=== PATIENT | male | born 1985 | race Caucasian/White ===

== ENCOUNTER 2017-03-19 19:01 | Emergency (ER) | payer OTHER ==
[~2017-03-19] VITALS: Ht 172.7 cm; Wt 100.0 kg
[2017-03-19] MEDS ORDERED: IBUPROFEN 600 MG TAB PO ONE (20:45)
[2017-03-19] MEDS ORDERED: IBUP-1022 PO (20:50)
[2017-03-19 21:22] VITALS: BP 140/95
--- NOTE | 2017-03-20 01:31 | REP ---
Clinical: Pain and swelling. Technique: AP, lateral, bilateral oblique and sunrise views of the left knee. Findings: Early advanced tricompartmental osteoarthritic degenerative changes include subchondral sclerosis, lateral osteophytes, and trace chondrocalcinosis. No obvious acute fracture dislocation. No obvious effusion. Impression: Early advanced tricompartmental osteoarthritic degenerative changes. Findings may be related to old injury. No acute fracture dislocation appreciated. Signed by Eddie Weaver MD 03/20/2017 01:22 A
== END 2017-03-19 21:46 | disposition home or self-care (01) ==
LOC: M ED 19:01
DX: S83.412A Sprain of medial collateral ligament of left knee, initial encounter (principal); X50.1XXA Overexertion from prolonged static or awkward postures, initial encounter; Y92.410 Unspecified street and highway as the place of occurrence of the external cause; Y93.9 Activity, unspecified; Y99.9 Unspecified external cause status

== ENCOUNTER 2017-05-14 11:25 | Emergency (ER) | payer OTHER ==
[~2017-05-14] VITALS: Ht 172.7 cm; Wt 100.0 kg
[~2017-05-14 11:25] MED LIST: IBUP-1022 PO
[2017-05-14] MEDS ORDERED: LIDOCAINE 1% MDV 20ML VIAL IM ONE (13:30)
[2017-05-14] MEDS ORDERED: CEPHALEXIN 500 MG CAP PO ONE (13:45)
[2017-05-14] MEDS ORDERED: KEFL500C17 PO (13:48)
[2017-05-14 13:53] VITALS: BP 138/86
== END 2017-05-14 13:54 | disposition home or self-care (01) ==
LOC: M ED 11:25
DX: S51.811A Laceration without foreign body of right forearm, initial encounter (principal); S61.210A Laceration without foreign body of right index finger without damage to nail, initial encounter; W25.XXXA Contact with sharp glass, initial encounter; Y92.9 Unspecified place or not applicable; Y93.89 Activity, other specified; Y99.9 Unspecified external cause status

== ENCOUNTER 2018-01-29 11:59 | Emergency (ER) | payer OTHER | END 2018-01-29 13:38 | disposition left against medical advice (07) | LOC: M ED 11:59 | DX: Z53.29 Procedure and treatment not carried out because of patient's decision for other reasons (principal) ==

== ENCOUNTER 2022-01-01 20:11 | Emergency (ER) | payer OTHER ==
[~2022-01-01] VITALS: Ht 172.7 cm; Wt 91.0 kg
[~2022-01-01 20:11] MED LIST changes: +KEFL500C17 PO
[2022-01-01 20:14] VITALS: BP 136/68
== END 2022-01-01 21:46 | disposition left against medical advice (07) ==
LOC: M ED 20:11
DX: Z53.21 Procedure and treatment not carried out due to patient leaving prior to being seen by health care provider (principal)

== ENCOUNTER 2022-01-02 01:40 | Emergency (ER) | payer OTHER ==
[~2022-01-02] VITALS: Ht 172.7 cm; Wt 91.9 kg
[2022-01-02 01:41] VITALS: BP 132/80
== END 2022-01-02 05:42 | disposition left against medical advice (07) ==
LOC: M ED 01:40
DX: Z53.21 Procedure and treatment not carried out due to patient leaving prior to being seen by health care provider (principal)

== ENCOUNTER 2023-02-16 12:11 | Emergency (ER) | payer OTHER ==
[~2023-02-16] VITALS: Ht 172.7 cm; Wt 91.5 kg
[2023-02-16] MEDS ORDERED: MORPHINE 4 MG/ML 1ML VIAL IV ONE (13:05)
[2023-02-16 13:14] LABS: BASO % 0.2 % (0.0-1.0); EOS % 0.3 % (0.0-3.0); HEMATOCRIT 47.3 % (42.0-52.0); LYMPH # 2.2 10^3/uL (1.5-5.0); LYMPH % 21.4 % (24.0-44.0); MEAN CORPUSCULAR HEMOGLOBIN 32.6 pg (27.0-33.0); MEAN CORPUSCULAR HGB CONC 33.8 g/dl (32.0-36.5); MEAN CORPUSCULAR VOLUME 96.3 fl (80.0-96.0); MONO # 1.1 10^3/uL (0.0-0.8); MONO % 10.2 % (2.0-8.0); NEUTROPHILS % 67.5 % (36.0-66.0); PLATELET COUNT, AUTOMATED 375 10^3/uL (150-450); RED BLOOD COUNT 4.91 10^6/uL (4.30-6.10); WHITE BLOOD COUNT 10.3 10^3/uL (4.0-10.0)
[2023-02-16] MEDS ORDERED: NS 1,000 ML IV ONE (13:15)
[2023-02-16 13:20] LABS: ERYTHROCYTE SEDIMENTATION RATE 54 mm/hr (0-15)
[2023-02-16 13:31] LABS: C REACTIVE PROTEIN QUANTITATIV 4.2 MG/DL (<1.0)
[2023-02-16 13:32] LABS: URIC ACID 7.9 MG/DL (3.7-9.2)
[2023-02-16] MEDS ORDERED: methylPREDNISolone 125MG 2ML VIAL IV ONE (14:50)
[2023-02-16] MEDS ORDERED: ceFAZolin SOD 1 GM in D5W MINI-BAG PLUS 50 ML IV ONE (14:50)
[2023-02-16] MEDS ORDERED: CEPH500C PO (15:53)
[2023-02-16] MEDS ORDERED: PRED20TA PO (15:53)
[2023-02-16 16:31] VITALS: BP 154/78; TEMP 98.7; O2SAT 97
== END 2023-02-16 16:37 | disposition home or self-care (01) ==
LOC: M ED 12:11
DX: L03.116 Cellulitis of left lower limb (principal); M10.00 Idiopathic gout, unspecified site; K21.9 Gastro-esophageal reflux disease without esophagitis; F12.10 Cannabis abuse, uncomplicated; F17.200 Nicotine dependence, unspecified, uncomplicated; Z79.52 Long term (current) use of systemic steroids; Z79.899 Other long term (current) drug therapy
CPT/HCPCS: 73630; 80047; 83605; 84550; 85025; 85652; 86140; 87040; 93971; 96365; 96375; 99284; J0690; J2930

== ENCOUNTER → 2023-04-02 | Outpatient (REF) | payer OTHER ==
[~2023-04-02] MED LIST changes: +CEPH500C PO; +PRED20TA PO
[2023-04-02 17:33] LABS: ALBUMIN 3.6 G/DL (3.2-5.2); ALKALINE PHOSPHATASE 72 U/L (46-116); ALT/SGPT 16 U/L (7.0-40); AST/SGOT 16 U/L (<34); BILIRUBIN,TOTAL 0.4 MG/DL (0.3-1.2); BLOOD UREA NITROGEN < 5 MG/DL (9-23); CALCIUM LEVEL 8.7 MG/DL (8.5-10.1); CARBON DIOXIDE LEVEL 28 MMOL/L (20-31); CHLORIDE LEVEL 108 MMOL/L (98-107); CHOLESTEROL LEVEL 181 MG/DL (<200); CHOLESTEROL RISK RATIO 4.65 (<5); CREATININE FOR GFR 0.77 MG/DL (0.70-1.30); GLOMERULAR FILTRATION RATE > 60.0 (>60); GLUCOSE, FASTING 89 MG/DL (60-100); HDL CHOLESTEROL 38.9 MG/DL (>40); LDL CHOLESTEROL 109.1 MG/DL (<100); NON-HDL-C 142.1 MG/DL; POTASSIUM SERUM 4.5 MMOL/L (3.5-5.1); SODIUM LEVEL 143 MMOL/L (136-145); TRIGLYCERIDES LEVEL 165 MG/DL (<150); URIC ACID 9.2 MG/DL (3.7-9.2)
== END ==
LOC: M LAB REF 16:38
PROVIDERS: ATTEND Pediatrics
DX: M1A.0790 Idiopathic chronic gout, unspecified ankle and foot, without tophus (tophi) (principal); E78.2 Mixed hyperlipidemia

== ENCOUNTER 2023-06-18 21:30 | Emergency (ER) | payer OTHER ==
[~2023-06-18] VITALS: Ht 177.8 cm; Wt 65.0 kg
[~2023-06-18 21:30] MED LIST changes: +ALLO100T; +INDO75CA10; +ONDA4TAB6 PO; +PROT1TAB2 PO
[2023-06-18 23:15] LABS: ETHYL ALCOHOL (ETHANOL) 0.005 % (0.000-0.010)
[2023-06-18 23:16] LABS: SALICYLATE LEVEL < 3.0 MG/DL (<30)
[2023-06-18 23:18] LABS: THYROID STIMULATING HORMONE 2.812 uIU/ML (0.55-4.78)
[2023-06-18 23:20] LABS: ALBUMIN 4.4 G/DL (3.2-5.2); ALKALINE PHOSPHATASE 81 U/L (46-116); ALT/SGPT 26 U/L (7.0-40); AST/SGOT 45 U/L (<34); BILIRUBIN,DIRECT 0.1 MG/DL (<0.4); BILIRUBIN,TOTAL 0.5 MG/DL (0.3-1.2); BLOOD UREA NITROGEN 8 MG/DL (9-23); CALCIUM LEVEL 9.5 MG/DL (8.5-10.1); CARBON DIOXIDE LEVEL 19 MMOL/L (20-31); CHLORIDE LEVEL 105 MMOL/L (98-107); CREATININE FOR GFR 0.74 MG/DL (0.70-1.30); GLOMERULAR FILTRATION RATE > 60.0 (>60); GLUCOSE, FASTING 76 MG/DL (60-100); POTASSIUM SERUM 4.8 MMOL/L (3.5-5.1); SODIUM LEVEL 139 MMOL/L (136-145); TOTAL PROTEIN 7.6 G/DL (5.7-8.2)
[2023-06-18 23:24] LABS: AMPHETAMINES LEVEL URINE NEGATIVE (NEGATIVE); BARBITURATES URINE NEGATIVE (NEGATIVE); BENZODIAZEPINES URINE NEGATIVE (NEGATIVE); COCAINE METABOLITE URINE NEGATIVE (NEGATIVE); METHADONE URINE NEGATIVE (NEGATIVE); OPIATES URINE NEGATIVE (NEGATIVE); PHENCYCLIDINE URINE NEGATIVE (NEGATIVE)
[2023-06-18 23:34] LABS: CANNABINOIDS URINE POSITIVE (NEGATIVE)
[2023-06-18 23:39] VITALS: BP 137/99; TEMP 98.1; O2SAT 99
[2023-06-19] MEDS ORDERED: HOME MED LIST COMPLETE! XX SCH (08:10)
== END 2023-06-19 11:53 | disposition home or self-care (01) ==
LOC: M ED 21:30
DX: F43.0 Acute stress reaction (principal); R45.850 Homicidal ideations; K21.9 Gastro-esophageal reflux disease without esophagitis

== ENCOUNTER 2023-06-24 13:03 | Inpatient (IN) | payer MEDICAID, OTHER ==
[~2023-06-24] VITALS: Ht 172.7 cm; Wt 90.9 kg
[2023-06-24 14:37] LABS: HEMATOCRIT 51.1 % (42.0-52.0); HEMOGLOBIN 17.7 g/dl (13.5-17.5); MEAN CORPUSCULAR HEMOGLOBIN 33.3 pg (27.0-33.0); MEAN CORPUSCULAR HGB CONC 34.6 g/dl (32.0-36.5); MEAN CORPUSCULAR VOLUME 96.1 fl (80.0-96.0); PLATELET COUNT, AUTOMATED 261 10^3/uL (150-450); RED BLOOD COUNT 5.32 10^6/uL (4.30-6.10); WHITE BLOOD COUNT 8.1 10^3/uL (4.0-10.0)
[2023-06-24 15:00] LABS: ETHYL ALCOHOL (ETHANOL) < 0.003 % (0.000-0.010)
[2023-06-24 15:02] LABS: ALBUMIN 4.2 G/DL (3.2-5.2); ALKALINE PHOSPHATASE 79 U/L (46-116); ALT/SGPT 18 U/L (7.0-40); AST/SGOT 23 U/L (<34); BILIRUBIN,DIRECT 0.1 MG/DL (<0.4); BILIRUBIN,TOTAL 0.4 MG/DL (0.3-1.2); BLOOD UREA NITROGEN 8 MG/DL (9-23); CALCIUM LEVEL 9.1 MG/DL (8.5-10.1); CARBON DIOXIDE LEVEL 26 MMOL/L (20-31); CHLORIDE LEVEL 104 MMOL/L (98-107); CREATININE FOR GFR 0.73 MG/DL (0.70-1.30); GLOMERULAR FILTRATION RATE > 60.0 (>60); GLUCOSE, FASTING 88 MG/DL (60-100); POTASSIUM SERUM 3.9 MMOL/L (3.5-5.1); SALICYLATE LEVEL < 3.0 MG/DL (<30); SODIUM LEVEL 140 MMOL/L (136-145)
[2023-06-24 15:24] LABS: BARBITURATES URINE NEGATIVE (NEGATIVE); COCAINE METABOLITE URINE NEGATIVE (NEGATIVE); METHADONE URINE NEGATIVE (NEGATIVE); OPIATES URINE NEGATIVE (NEGATIVE); PHENCYCLIDINE URINE NEGATIVE (NEGATIVE)
[2023-06-24 15:25] LABS: AMPHETAMINES LEVEL URINE NEGATIVE (NEGATIVE); BENZODIAZEPINES URINE NEGATIVE (NEGATIVE)
[2023-06-24 15:26] LABS: CANNABINOIDS URINE POSITIVE (NEGATIVE)
[2023-06-24] MEDS ORDERED: OLANZapine 5 MG TAB PO PRN (16:55)
[2023-06-24] MEDS ORDERED: MOM 30ML SUSPENSION UDC PO PRN (16:55)
[2023-06-24] MEDS ORDERED: MAALOX 30 ML SUSP *UDC PO PRN (16:55)
[2023-06-24] MEDS ORDERED: traZODone 50 MG TAB PO PRN (16:55)
[2023-06-24] MEDS ORDERED: diphenhydrAMINE 25MG CAP PO PRN (16:55)
[2023-06-24] MEDS ORDERED: IBUPROFEN 400MG TAB PO PRN (16:55)
[2023-06-24] MEDS ORDERED: ACETAMINOPHEN TAB 650MG DOSE (2X325MG) PO PRN (16:55)
[2023-06-24 20:35] VITALS: BP 119/78; TEMP 97.7; O2SAT 97
[2023-06-24] MEDS ORDERED: ALLO100T PO (21:34)
[2023-06-24] MEDS ORDERED: COLC0.6T47 PO (21:34)
[2023-06-24] MEDS ORDERED: HOME MED LIST COMPLETE! XX SCH (21:35)
[2023-06-25 06:30] VITALS: BP 154/92; TEMP 97.5; O2SAT 97
[2023-06-25 08:04] VITALS: BP 138/80
[2023-06-25] MEDS: OLANZapine 5 MG TAB PO SCH ×2 (10:31→21:00)
[2023-06-25 16:05] VITALS: BP 123/85; TEMP 98.2; O2SAT 96
[2023-06-25 16:14] VITALS: BP 133/84; TEMP 98.4; O2SAT 100
[2023-06-26 06:30] VITALS: BP 139/73; TEMP 97.6; O2SAT 96
[2023-06-26] MEDS: OLANZapine 5 MG TAB PO SCH ×2 (09:00→21:00)
[2023-06-26] MEDS ORDERED: OLAN1TAB20 PO (11:34)
[2023-06-26 17:38] VITALS: BP 136/77; TEMP 97.9; O2SAT 98
[2023-06-27 06:34] VITALS: BP 116/74; TEMP 97.9; O2SAT 98
[2023-06-27] MEDS: OLANZapine 5 MG TAB PO SCH (09:00)
== END 2023-06-27 11:57 | disposition home or self-care (01) | DRG 751 ==
LOC: M ED 13:03 → M ED INP 16:54 → M PSY 19:51
PROVIDERS: ADMIT Student in an Organized Health Care Education/Training Program; ATTEND Student in an Organized Health Care Education/Training Program
DX: F29 Unspecified psychosis not due to a substance or known physiological condition (principal); F12.90 Cannabis use, unspecified, uncomplicated; F10.10 Alcohol abuse, uncomplicated; F17.200 Nicotine dependence, unspecified, uncomplicated; F15.90 Other stimulant use, unspecified, uncomplicated; F60.0 Paranoid personality disorder; R45.850 Homicidal ideations; Z79.899 Other long term (current) drug therapy

== ENCOUNTER → 2023-09-05 | Outpatient (CLI) | payer OTHER, SELFPAY ==
[~2023-09-05] MED LIST changes: +ALLO100T PO; +COLC0.6T47 PO; +OLAN1TAB20 PO
== END ==
LOC: M RAD 12:18
PROVIDERS: ATTEND Nurse Practitioner Family
DX: M47.816 Spondylosis without myelopathy or radiculopathy, lumbar region (principal); M46.96 Unspecified inflammatory spondylopathy, lumbar region; M41.86 Other forms of scoliosis, lumbar region

== ENCOUNTER → 2023-10-18 | Outpatient (REF) | payer MEDICAID ==
[2023-10-18 17:50] LABS: BASO % 0.2 % (0.0-1.0); EOS % 0.2 % (0.0-3.0); HEMATOCRIT 43.9 % (42.0-52.0); LYMPH # 2.1 10^3/uL (1.5-5.0); LYMPH % 25.4 % (24.0-44.0); MEAN CORPUSCULAR HEMOGLOBIN 33.3 pg (27.0-33.0); MEAN CORPUSCULAR HGB CONC 34.2 g/dl (32.0-36.5); MEAN CORPUSCULAR VOLUME 97.3 fl (80.0-96.0); MONO # 0.6 10^3/uL (0.0-0.8); MONO % 6.9 % (2.0-8.0); NEUTROPHILS # 5.5 10^3/uL (1.5-8.5); NEUTROPHILS % 67.2 % (36.0-66.0); PLATELET COUNT, AUTOMATED 273 10^3/uL (150-450); RED BLOOD COUNT 4.51 10^6/uL (4.30-6.10); WHITE BLOOD COUNT 8.1 10^3/uL (4.0-10.0)
[2023-10-18 18:05] LABS: HEMOGLOBIN A1c 5.1 % (4.0-6.0)
[2023-10-18 18:08] LABS: ALBUMIN 3.7 G/DL (3.2-5.2); ALKALINE PHOSPHATASE 80 U/L (46-116); ALT/SGPT 33 U/L (7.0-40); AST/SGOT 22 U/L (<34); BILIRUBIN,TOTAL 0.4 MG/DL (0.3-1.2); BLOOD UREA NITROGEN 12 MG/DL (9-23); CALCIUM LEVEL 8.5 MG/DL (8.5-10.1); CARBON DIOXIDE LEVEL 27 MMOL/L (20-31); CHLORIDE LEVEL 105 MMOL/L (98-107); CHOLESTEROL LEVEL 244 MG/DL (<200); CHOLESTEROL RISK RATIO 4.86 (<5); CREATININE FOR GFR 0.87 MG/DL (0.70-1.30); GLOMERULAR FILTRATION RATE > 60.0 (>60); GLUCOSE, FASTING 81 MG/DL (60-100); HDL CHOLESTEROL 50.2 MG/DL (>40); LDL CHOLESTEROL 141.6 MG/DL (<100); MAGNESIUM LEVEL 1.7 MG/DL (1.8-2.4); NON-HDL-C 193.8 MG/DL; POTASSIUM SERUM 4.2 MMOL/L (3.5-5.1); SODIUM LEVEL 138 MMOL/L (136-145); THYROID STIMULATING HORMONE 1.165 uIU/ML (0.55-4.78); TOTAL 25(OH) VITAMIN D 16.2 NG/ML (20.0-100.0); TOTAL PROTEIN 6.4 G/DL (5.7-8.2); TRIGLYCERIDES LEVEL 261 MG/DL (<150)
== END ==
LOC: M LAB REF 16:37
PROVIDERS: ATTEND Nurse Practitioner Family
DX: E55.9 Vitamin D deficiency, unspecified (principal); E66.3 Overweight

== ENCOUNTER → 2023-10-28 | Outpatient (CLI) | payer OTHER | LOC: M RAD 10:57 | PROVIDERS: ATTEND Nurse Practitioner Family | DX: M25.551 Pain in right hip (principal) ==

== ENCOUNTER → 2023-10-29 | Outpatient (REF) | payer OTHER ==
[2023-10-29 17:18] LABS: URIC ACID 7.5 MG/DL (3.7-9.2)
[2023-10-29 17:21] LABS: CHOLESTEROL RISK RATIO 3.76 (<5); HDL CHOLESTEROL 49.1 MG/DL (>40); LDL CHOLESTEROL 88.1 MG/DL (<100); NON-HDL-C 135.9 MG/DL
== END ==
LOC: M LAB REF 15:18
PROVIDERS: ATTEND Nurse Practitioner Family
DX: M1A.0790 Idiopathic chronic gout, unspecified ankle and foot, without tophus (tophi) (principal); R79.89 Other specified abnormal findings of blood chemistry

== ENCOUNTER → 2024-03-09 | Outpatient (REF) | payer OTHER ==
[~2024-03-09] MED LIST changes: +ONDA-282 PO; -ONDA4TAB6 PO
[2024-03-09 16:36] LABS: URIC ACID 6.4 MG/DL (3.7-9.2)
[2024-03-09 16:39] LABS: ALBUMIN 3.1 G/DL (3.2-5.2); ALKALINE PHOSPHATASE 72 U/L (46-116); ALT/SGPT 19 U/L (7.0-40); AST/SGOT 13 U/L (<34); BILIRUBIN,TOTAL 0.3 MG/DL (0.3-1.2); BLOOD UREA NITROGEN 9 MG/DL (9-23); CALCIUM LEVEL 8.4 MG/DL (8.5-10.1); CARBON DIOXIDE LEVEL 27 MMOL/L (20-31); CHLORIDE LEVEL 106 MMOL/L (98-107); CHOLESTEROL LEVEL 183 MG/DL (<200); CHOLESTEROL RISK RATIO 4.03 (<5); CREATININE FOR GFR 0.67 MG/DL (0.70-1.30); GLOMERULAR FILTRATION RATE > 60.0 (>60); GLUCOSE, FASTING 160 MG/DL (60-100); HDL CHOLESTEROL 45.4 MG/DL (>40); LDL CHOLESTEROL 100.8 MG/DL (<100); NON-HDL-C 137.6 MG/DL; POTASSIUM SERUM 3.9 MMOL/L (3.5-5.1); SODIUM LEVEL 139 MMOL/L (136-145); TOTAL PROTEIN 5.7 G/DL (5.7-8.2); TRIGLYCERIDES LEVEL 184 MG/DL (<150)
== END ==
LOC: M LAB REF 12:56
PROVIDERS: ATTEND Pediatrics
DX: M1A.0790 Idiopathic chronic gout, unspecified ankle and foot, without tophus (tophi) (principal); R79.89 Other specified abnormal findings of blood chemistry

== ENCOUNTER 2024-04-09 20:07 | Inpatient (IN) | payer MEDICAID, OTHER ==
[~2024-04-09] VITALS: Ht 172.7 cm; Wt 86.4 kg
[2024-04-09 20:45] LABS: HEMATOCRIT 49.8 % (42.0-52.0); HEMOGLOBIN 17.1 g/dl (13.5-17.5); MEAN CORPUSCULAR HEMOGLOBIN 33.9 pg (27.0-33.0); MEAN CORPUSCULAR HGB CONC 34.3 g/dl (32.0-36.5); MEAN CORPUSCULAR VOLUME 98.6 fl (80.0-96.0); PLATELET COUNT, AUTOMATED 237 10^3/uL (150-450); RED BLOOD COUNT 5.05 10^6/uL (4.30-6.10); WHITE BLOOD COUNT 6.8 10^3/uL (4.0-10.0)
[2024-04-09 21:06] LABS: ETHYL ALCOHOL (ETHANOL) 0.004 % (0.000-0.010)
[2024-04-09 21:08] LABS: ALBUMIN 4.2 G/DL (3.2-5.2); ALKALINE PHOSPHATASE 86 U/L (46-116); ALT/SGPT 24 U/L (7.0-40); AST/SGOT 20 U/L (<34); BILIRUBIN,DIRECT < 0.1 MG/DL (<0.4); BILIRUBIN,TOTAL 0.4 MG/DL (0.3-1.2); BLOOD UREA NITROGEN 10 MG/DL (9-23); CALCIUM LEVEL 9.2 MG/DL (8.5-10.1); CARBON DIOXIDE LEVEL 28 MMOL/L (20-31); CHLORIDE LEVEL 107 MMOL/L (98-107); CREATININE FOR GFR 0.87 MG/DL (0.70-1.30); GLOMERULAR FILTRATION RATE > 60.0 (>60); GLUCOSE, FASTING 89 MG/DL (60-100); POTASSIUM SERUM 4.7 MMOL/L (3.5-5.1); SALICYLATE LEVEL < 3.0 MG/DL (<30); SODIUM LEVEL 138 MMOL/L (136-145)
[2024-04-09 21:10] LABS: THYROID STIMULATING HORMONE 1.033 uIU/ML (0.55-4.78)
[2024-04-09] MEDS ORDERED: VITA200030 PO (22:23)
[2024-04-09] MEDS ORDERED: ALLO300T2 PO (22:23)
[2024-04-09 22:25] LABS: AMPHETAMINES LEVEL URINE NEGATIVE (NEGATIVE); BARBITURATES URINE NEGATIVE (NEGATIVE); COCAINE METABOLITE URINE NEGATIVE (NEGATIVE); METHADONE URINE NEGATIVE (NEGATIVE); OPIATES URINE NEGATIVE (NEGATIVE)
[2024-04-09] MEDS ORDERED: HOME MED LIST COMPLETE! XX SCH (22:25)
[2024-04-09 22:26] LABS: BENZODIAZEPINES URINE NEGATIVE (NEGATIVE); PHENCYCLIDINE URINE NEGATIVE (NEGATIVE)
[2024-04-09 22:27] LABS: CANNABINOIDS URINE POSITIVE (NEGATIVE)
[2024-04-09] MEDS ORDERED: IBUPROFEN 400MG TAB PO PRN (22:30)
[2024-04-09] MEDS ORDERED: ACETAMINOPHEN TAB 650MG DOSE (2X325MG) PO PRN (22:30)
[2024-04-09] MEDS ORDERED: COLCHICINE 0.6 MG TABLET PO PRN (22:30)
[2024-04-09] MEDS ORDERED: OLANZapine ORAL DISINTEGRATING TAB 5MG PO PRN (22:30)
[2024-04-09] MEDS ORDERED: MOM 30ML SUSPENSION UDC PO PRN (22:30)
[2024-04-09] MEDS ORDERED: LORazepam 1 MG TAB PO PRN (22:30)
[2024-04-09] MEDS ORDERED: NICOTINE 21MG/24HR 1 EA TRANSDERMAL TD PRN (22:30)
[2024-04-09] MEDS ORDERED: MAALOX 30 ML SUSP *UDC PO PRN (22:30)
[2024-04-09] MEDS: traZODone 50 MG TAB PO PRN (23:17)
[2024-04-10] MEDS: diphenhydrAMINE 25MG CAP PO PRN (01:04)
[2024-04-10 06:35] VITALS: BP 108/61; TEMP 97.4; O2SAT 96
[2024-04-10] MEDS: allopurinoL 300 MG TAB PO SCH (10:04)
== END 2024-04-10 13:19 | disposition home or self-care (01) | DRG 760 ==
LOC: M ED 20:07 → M ED INP 22:30 → M PSY 04-10
PROVIDERS: ADMIT Psychiatry & Neurology Psychiatry; ATTEND Psychiatry & Neurology Psychiatry
DX: F22 Delusional disorders (principal); Z79.899 Other long term (current) drug therapy